=== PATIENT | female | born 1990 | race Caucasian/White ===

== ENCOUNTER → 2017-10-11 14:11 | Outpatient (CLI) | payer SELFPAY ==
[2017-10-11 17:55] LABS: Group B Strep DNA By PCR POSITIVE (Negative); Probe Check PASS
== END ==
PROVIDERS: Visit Provider Obstetrics & Gynecology
DX: Z36.85 Encounter for antenatal screening for Streptococcus B (principal)
CPT/HCPCS: 87653

== ENCOUNTER 2017-11-09 06:48 | Inpatient (IN) | payer SELFPAY ==
[2017-11-09 07:22] VITALS: BMI 29.6
[2017-11-09] MEDS: Lactated Ringers 1,000 ML 50 ML IV ×3 (07:44→13:30)
[2017-11-09 08:14] LABS: Hematocrit 40.6 % (37-47); Hemoglobin 14.2 g/dl (12.0-15.0); Mean Corpuscular Hgb 30.7 pg (27.0-32.0); Mean Corpuscular Volume 87.9 fL (81-99); Mean Platelet Vol. 10.3 fl (6.2-12.0); Platelet Count 121 K/mm3 (150-450); RBC Distribution Width CV 12.7 % (11.6-14.6); Red Blood Count 4.62 M/mm3 (4.2-5.4); White Blood Count 14.8 K/mm3 (4.4-11.0)
[2017-11-09 08:15] LABS: Scan Indicated on CBC? Y/N NO
[2017-11-09] MEDS: Oxytocin 30 units/NS 500 ml 30 UNITS/500 ML IV.SOLN IV (08:37)
--- NOTE | 2017-11-09 13:07 | PCM.PN.BLA ---
Progress Note LABOR PROGRESS NOTE. Late entry from approx 1205 Feeling some UCs, but not uncomfortable. GBS positive and second PCN dose started. Plans for AROM and then epidural AVSS Pitocin induction. EFM: category I tracing. FHT in 130-140s with accels category I tracing. Occasional late UCs q 2-3 min and at times q 6 mins. CX: 4/75/-2 midposition. AROM clear fluid A/P: 40 wk induction Thrombocytopenia, but plts ok for epidural. Epidural to be placed. Continue labor PCN for GBS prophylaxis. Second dose initiated.
[2017-11-09] MEDS: fentaNYL-bupivacaine (epidural) 100 ML BAG EPIDURAL (13:56)
[2017-11-09] MEDS: Oxytocin 30 units/NS 500 ml 30 UNITS/500 ML IV.SOLN 334 UNITS IV (15:33)
[2017-11-09] MEDS: Oxytocin 30 units/NS 500 ml 30 UNITS/500 ML IV.SOLN 167 UNITS IV (16:03)
--- NOTE | 2017-11-09 16:21 | PCM.OB.VAG ---
Vaginal Delivery Maternal Presentation: Elective Induction 40 wk, thrombocytopenia Method of Induction: Pitocin, Amniotomy Amniotic Membrane Rupture Type: Artificial Amniotic Fluid Description: Clear Final LISA: 11/09/17 Gestational age: 40 Weeks and 0 Days Date of Procedure: 11/09/17 Pre-Operative Diagnosis: 40 wk induction , thrombocytopenia Post-Operative Diagnosis: same Type of Anesthesia: Epidural Description of Procedure: of a singleon viable female over intact perineum Head delivered OA with single contraction and maternal expulsive effort. Loose nuchal cord x one reduced. Shoulders delivered easily. Vigorous, crying to maternal abdomen. Delayed cord clamping x 30 sec. Cord clamped x two and cut. Routine cord blood collected for typing. PP exam: no lacerations, no repair. Placenta delivered by spontaneous expulsion, expression. Intact, with trailing membranes. normal appearing. 3V cord. EBL 200 cc Pt and infant tolerated delivery well. To recovery, stable condition Ray Jackie counts correct times two. Presentation: Vertex - OA Placental Delivery Description: Spontaneous, Expressed Placenta Disposition: [facility] Cord Vessel Description: 3 Vessels Nuchal Cord Compression: Without compression Cord Entanglement: Around neck x 1, loose Drain: Salas to straight drain Estimated Blood Loss: 200 A gender: Female (1 minute): 9 (5 minute): 9 Episiotomy Description: None Laceration: None Medications given after delivery: IV Pitocin Complications: None
--- NOTE | 2017-11-09 16:26 | PCM.DCVAG ---
Discharge Diet: No Restrictions Discharge Activity: May Shower, May Take a Tub Bath Return to work on:: 12/20/17 May resume sexual activity in: 4-6 weeks Additional Activity Instructions:: Nothing in the vagina for 4-6 weeks. You may return to work/school in 6 weeks. Additional Instructions: If you experience any of the following, contact your healthcare provider. Bleeding that soaks a pad every hour for 2 hours Fever 100.4 or higher Unrelieved abdominal pain Problems urinating (including inability to urinate or burning while urinating). Visual changes Severe headache Flu-like symptoms Pain or redness in one of both of your breasts Pain, warmth, tenderness or swelling in your legs, especially the calf area Frequent nausea and vomiting Symptoms of depression or anxiety If you experience any of the following, call 911 or go to the nearest Emergency Room. Chest pain Problems breathing Seizure activity Partial or complete paralysis of a body part, slurred speech, weakness or drooping of the face, or a sudden inability to walk or hold your balance Allergies/Adverse Reactions: Allergies No Known Allergies Allergy (Verified 01/08/16 10:13) Medications to take at Discharge Vits [Prenatabs FA ] 1 tablet PO DAILY 06/11/14 Please Follow Up With: Willow Mathur MD - [phone] When: Call to make an appointment with your doctor in 6 weeks. Primary Care Physician: Care Physician,No Primary [Primary Care Provider] -
--- NOTE | 2017-11-09 16:27 | DCINST_ITS ---
Discharge Diet: No Restrictions Discharge Activity: May Shower, May Take a Tub Bath Return to work on:: 12/20/17 May resume sexual activity in: 4-6 weeks Additional Activity Instructions:: Nothing in the vagina for 4-6 weeks. You may return to work/school in 6 weeks. Additional Instructions: If you experience any of the following, contact your healthcare provider. * Bleeding that soaks a pad every hour for 2 hours * Fever 100.4 or higher * Unrelieved abdominal pain * Problems urinating (including inability to urinate or burning while urinating) . * Visual changes * Severe headache * Flu-like symptoms * Pain or redness in one of both of your breasts * Pain, warmth, tenderness or swelling in your legs, especially the calf area * Frequent nausea and vomiting * Symptoms of depression or anxiety If you experience any of the following, call 911 or go to the nearest Emergency Room. * Chest pain * Problems breathing * Seizure activity * Partial or complete paralysis of a body part, slurred speech, weakness or drooping of the face, or a sudden inability to walk or hold your balance Allergies/Adverse Reactions: Allergies No Known Allergies Allergy (Verified 01/08/16 10:13) Medications to take at Discharge Vits [Prenatabs FA ] 1 tablet PO DAILY 06/11/14 Please Follow Up With: Willow Mathur MD - [phone] When: Call to make an appointment with your doctor in 6 weeks. Primary Care Physician: Care Physician,No Primary [Primary Care Provider] -
[2017-11-09] MEDS: Lactated Ringers 1,000 ML 15 ML IV (17:06)
[2017-11-09 20:50] VITALS: BP 108/66; PULSE 85; RESP 18; TEMP 36.8
[2017-11-10] MEDS: Ibuprofen 600 MG Tablet PO ×3 (00:44→18:21)
[2017-11-10 00:46] VITALS: BP 110/62; PULSE 77; RESP 18; TEMP 36.6
[2017-11-10 05:00] VITALS: BP 114/62; PULSE 87; RESP 18; TEMP 36.8
--- NOTE | 2017-11-10 05:52 | PCM.PN.OB ---
Subjective: PPD#1 GBS positive, adequate prophylaxis given prior to delivery Doing well. states baby has been sleeping well at stretches, and also nursing well. States some pain but ibuprofen helpful for this. Would like to go home later today if baby is released. (two boys at home, flu restrictions on visitation) Objective: Up walking around the room, NAD. - Physical Exam General: Alert, Oriented x3, Cooperative, No apparent distress HEENT: Atraumatic Neck: Supple Abdomen: Soft - Fundus firm NT at approx umbilicus Neurological: Cranial nerves II-XII grossly intact Psych/Mental Status: Normal Affect Vital Signs Temp Pulse Resp BP 97.9 F 77 18 110/62 11/10/17 00:46 11/10/17 00:46 11/10/17 00:46 11/10/17 00:46 Oxygen Delivery Method Room Air Weight: 80.8 kg Body Mass Index (BMI) 29.6 Intake and Output for Last 24 Hours 11/08/17 11/09/17 11/10/17 23:59 23:59 23:59 Intake Total 3120 / 3120 Output Total 3600 / 3600 Balance -480 / -480 Laboratory Tests Past 24 Hrs 11/09/17 11/09/17 11/10/17 07:55 07:55 05:35 WBC 14.8 H Pending RBC 4.62 Pending Hgb 14.2 Pending Hct 40.6 Pending MCV 87.9 Pending MCH 30.7 Pending MCHC 35.0 Pending RDW 12.7 Pending RDW Differential 40.0 Pending Plt Count 121 L Pending MPV 10.3 Blood Type O NEGATIVE Antibody Screen NEGATIVE Medical Necessity - Tobacco Use Smoking Status: Never smoker Assessment/Plan PPD#1 GBS but with adequate prophylaxis prior to delivery Dischg home today if baby is released. RTO in 6wk for pp check, prn sooner.
[2017-11-10 06:19] LABS: Hematocrit 35.6 % (37-47); Hemoglobin 12.3 g/dl (12.0-15.0); Mean Corp Hgb Conc 34.6 g/gl (32-36); Mean Corpuscular Hgb 30.8 pg (27.0-32.0); Mean Corpuscular Volume 89.2 fL (81-99); Mean Platelet Vol. 10.1 fl (6.2-12.0); Platelet Count 123 K/mm3 (150-450); RBC Distribution Width CV 12.6 % (11.6-14.6); RBC Distribution Width SD 40.1 fl (35.1-43.9); Red Blood Count 3.99 M/mm3 (4.2-5.4); Scan Indicated on CBC? Y/N NO; White Blood Count 15.6 K/mm3 (4.4-11.0)
[2017-11-10 09:30] VITALS: BP 132/74; PULSE 92; RESP 16; TEMP 36.3; O2SAT 98
[2017-11-10] MEDS: Prenatal Vits Tablet 1 TABLET PO (09:50)
[2017-11-10 12:00] VITALS: BP 129/81; PULSE 86; RESP 16; TEMP 36.3; O2SAT 97
[2017-11-10] MEDS: Senna/Docusate Sodium 1 Tablet PO (17:24)
[2017-11-10 18:00] VITALS: BP 123/76; PULSE 77; RESP 18; TEMP 36.3; O2SAT 97
== END 2017-11-10 18:30 | disposition home or self-care (01) | DRG 775 ==
PROVIDERS: Admitting Provider Obstetrics & Gynecology; Visit Provider Obstetrics & Gynecology
DX: O99.12 Other diseases of the blood and blood-forming organs and certain disorders involving the immune mechanism complicating childbirth (principal); D69.6 Thrombocytopenia, unspecified; O69.81X0 Labor and delivery complicated by cord around neck, without compression, not applicable or unspecified; O99.820 Streptococcus B carrier state complicating pregnancy; Z3A.40 40 weeks gestation of pregnancy; Z37.0 Single live birth
CPT/HCPCS: 59025; 59050; 85027; 86850; 86900; 93460; 99218; J7120; G0378

== ENCOUNTER → 2020-05-16 | Outpatient (CLI) | payer SELFPAY ==
[2020-05-20 18:06] LABS: HPV APTIMA, High Risk Negative (Negative); HPV Reflexed? YES, CHARGE PATIENT
== END | disposition home or self-care (01) ==
LOC: LABSPEC 13:07
PROVIDERS: Visit Provider Student in an Organized Health Care Education/Training Program
DX: Z12.4 Encounter for screening for malignant neoplasm of cervix (principal)
CPT/HCPCS: 87624; 88175; G0145

== ENCOUNTER → 2020-10-25 13:37 | Outpatient (CLI) | payer SELFPAY ==
--- NOTE | 2020-10-25 14:28 | US_ITS ---
STUDY: ULTRASOUND BREAST - LEFT REASON FOR EXAM: Female, 30 years old. Palpable lump left breast. TECHNIQUE: Axial and longitudinal images of the LEFT breast were performed with a high resolution ultrasound transducer. # OF IMAGES: 23 COMPARISON: Comparison is made with prior mammogram done earlier today. FINDINGS: LEFT Breast: The palpable abnormality corresponds to a 6 mm x 5 mm x 3 mm cyst just deep to the subcutaneous tissue. US/Breast Limited Unilateral IMPRESSION: The palpable abnormality corresponds to a 6 mm x 5 mm x 3 mm cyst at the 5 o''clock position of the breast at 2 cm from nipple just deep to the skin. ASSESSMENT CATEGORY: BIRADS Category 2: Benign. A letter regarding these results will be sent to the patient by the facility within 30 days. Electronically Signed: Robert Cueva MD at 15:51 EDT , Service support ,
--- NOTE | 2020-10-25 14:28 | BI_ITS ---
MAMMOGRAPHY - BILATERAL DIAGNOSTIC REASON FOR EXAM: Female, 30 years old. Pea-sized lump left breast. PERTINENT HISTORY: Non-contributory. TECHNIQUE: Digital bilateral breast danielle (3D mammographic acquisition) in the CC and MLO projections. 2-D mediolateral oblique (MLO) and craniocaudad (CC) views of both breasts were obtained. CAD: Full Field Digital Mammography with Computer Added Detection was performed. COMPARISON: None. Baseline examination. FINDINGS: Breast Composition: The breasts are extremely dense, which lowers the sensitivity of mammography. The palpable abnormality corresponds to a 5.8 mm well-defined nodule. No other significant abnormalities are identified. BI/DIAG MAMM W/CAD, BILAT IMPRESSION: 5.8 mm well-defined nodule in the central lateral aspect of the left breast. Correlation with ultrasound is recommended. ASSESSMENT CATEGORY: BIRADS Category 0: Incomplete. Need additional imaging evaluation. A letter regarding these results will be sent to the patient by the facility within 30 days. Approximately 10% of breast cancers are not detected by mammography. A normal mammogram should not delay biopsy of a clinically suspicious abnormality. Electronically Signed: Robert Cueva MD at 15:21 EDT , Service support ,
== END ==
PROVIDERS: Referring Provider Student in an Organized Health Care Education/Training Program; Visit Provider Student in an Organized Health Care Education/Training Program
DX: N63.0 Unspecified lump in unspecified breast (principal)
CPT/HCPCS: 76642; 77062; 77066; G0279

== ENCOUNTER 2024-09-09 19:14 | Inpatient (IN) | payer OTHER, SELFPAY ==
[2024-09-09] VITALS (26 sets, daily range): BP systolic 100–128; BP diastolic 53–82; PULSE 62–77; RESP 16–18; TEMP 36.1–36.3; O2SAT 99–100; BMI 28.8
[2024-09-09] MEDS: Lactated Ringers 1,000 ML 50 ML IV (19:50)
[2024-09-09 20:17] LABS: Absolute Lymphocyte Count 3.39 X10^3/uL (0.83-4.51); Absolute Neutrophil Count 11.2 X10^3/uL (2.0-7.7); Basophil# 0.06 X10^3/uL; Basophil% 0.4 % (0-1); Eosinophil# 0.11 X10^3/uL; Eosinophils% 0.7 % (0-5); Hematocrit 42.5 % (37-47); Lymphocyte # 3.39 X10^3/ul (0.83-4.51); Lymphocyte % 20.7 % (19-41); Mean Corp Hgb Conc 35.3 g/dL (32-36); Mean Corpuscular Hgb 31.2 pg (27.0-32.0); Mean Corpuscular Volume 88.4 fL (81-99); Mean Platelet Vol. 10.3 fl (6.2-12.0); Monocyte# 1.29 X10^3/uL; Monocyte% 7.9 % (0-10); NRBC Flagged by Analyzer 0 % (0-5); Neutrophil # 11.22 X10^3/uL (2.7-7.7); Neutrophil % 68.2 % (47-70); Platelet Count 153 K/mm3 (150-450); RBC Distribution Width CV 12.5 % (11.6-14.6); RBC Distribution Width SD 41.1 fl (35.1-43.9); Red Blood Count 4.81 M/mm3 (4.2-5.4); White Blood Count 16.4 K/mm3 (4.4-11.0)
[2024-09-09] MEDS: Oxytocin 15 Units/NS 250ml 15 UNITS/250 ML IV.SOLN 2 UNITS IV (20:28)
[2024-09-09] MEDS: Lactated Ringers 1,000 ML 999 ML IV (20:40)
[2024-09-09 21:37] LABS: Syphilis Antibodies Non-reactive
[2024-09-09] MEDS: fentaNYL-bupivacaine (epidural) 100 ML BAG EPIDURAL (22:10)
[2024-09-10] VITALS (31 sets, daily range): BP systolic 98–134; BP diastolic 58–87; PULSE 64–84; RESP 16–18; TEMP 36.1–36.6; O2SAT 88–99
[2024-09-10] MEDS: Lactated Ringers 1,000 ML 200 ML IV ×2 (02:26→07:43)
[2024-09-10] MEDS: Ondansetron 4 MG/2 ML Vial IV (08:09)
[2024-09-10] MEDS: fentaNYL-bupivacaine (epidural) 100 ML BAG EPIDURAL (08:52)
[2024-09-10] MEDS: Methylergonovine 0.2 MG/ML Ampul IM (09:44)
--- NOTE | 2024-09-10 09:52 | PCM.HP.OB ---
HPI - General General Date of Admission: 09/09/24 Date of Service: 09/09/24 Chief Complaint: induction of labor HPI Narrative KRISTIE FERNANDEZ, is a 34 F who presents for IOL for AMA and thrombocytopenia. [facility] Medical History (Updated 09/10/24 @ 09:[address] Laurel Nolen, DO) Anemia affecting Tonsil and adenoid disease, chronic Home Medications ?Medication ?Instructions ?Recorded ?Last Taken ?Type vits,calcium no.78-iron 1 tab PO DAILY 06/11/14 11/09/17 06:00 History fumarate-folic acid 29 mg-1 mg tablet (Prenatabs FA) aspirin 81 mg tablet,delayed 81 mg PO DAILY 09/09/24 09/08/24 History release Allergy/AdvReac Type Severity Reaction Status Date / Time No Known Allergies Allergy Verified 09/09/24 19:39 Surgical History (Updated 09/09/24 @ 19:56 by Zainab Torres) [place] teeth extracted Social History Smoking Status: Never smoker History Elective abortions Hx Para 3 Spontaneous abortions Hx # Term Pregnancies Ectopic pregnancies Hx # Pregnancies Multiple births # of living children NST FHR Rate Baby A FHR Category:: Category I Vital Signs Vital Signs Vital Signs: 09/09/24 19:31 09/09/24 19:31 09/09/24 19:31 Temperature Temperature Source Temporal Pulse Rate 69 Respiratory Rate Blood Pressure 121/78 H BP Systolic 121 BP Diastolic 78 Pulse Ox 09/09/24 19:31 09/09/24 19:31 09/09/24 21:50 Temperature 97.4 F L Temperature Source Pulse Rate Respiratory Rate 16 Blood Pressure 123/81 H BP Systolic 123 BP Diastolic 81 Pulse Ox 09/09/24 21:50 09/09/24 21:51 09/09/24 21:51 Temperature Temperature Source Pulse Rate 70 69 Respiratory Rate Blood Pressure BP Systolic BP Diastolic Pulse Ox 100 09/09/24 21:56 09/09/24 21:56 09/09/24 21:57 Temperature Temperature Source Pulse Rate 77 Respiratory Rate Blood Pressure 124/82 H BP Systolic 124 BP Diastolic 82 Pulse Ox 100 09/09/24 21:57 09/09/24 22:01 09/09/24 22:01 Temperature Temperature Source Pulse Rate 71 74 Respiratory Rate Blood Pressure BP Systolic BP Diastolic Pulse Ox 100 09/09/24 22:02 02/01/25 22:02 09/09/24 22:06 Temperature Temperature Source Pulse Rate 72 75 Respiratory Rate Blood Pressure 116/71 BP Systolic 116 BP Diastolic 71 Pulse Ox 09/09/24 22:06 09/09/24 22:08 09/09/24 22:09 Temperature Temperature Source Pulse Rate Respiratory Rate 16 Blood Pressure 128/66 H BP Systolic 128 BP Diastolic 66 Pulse Ox 100 09/09/24 22:09 09/09/24 22:11 09/09/24 22:11 Temperature Temperature Source Pulse Rate 77 76 Respiratory Rate Blood Pressure BP Systolic BP Diastolic Pulse Ox 100 09/09/24 22:13 09/09/24 22:13 09/09/24 22:13 Temperature Temperature Source Pulse Rate 73 Respiratory Rate 18 Blood Pressure 120/75 BP Systolic 120 BP Diastolic 75 Pulse Ox 09/09/24 22:15 09/09/24 22:15 09/09/24 22:16 Temperature 97.2 F L Temperature Source Temporal Pulse Rate 69 Respiratory Rate Blood Pressure BP Systolic BP Diastolic Pulse Ox 09/09/24 22:16 09/09/24 22:17 09/09/24 22:17 Temperature Temperature Source Pulse Rate 71 Respiratory Rate Blood Pressure 119/73 BP Systolic 119 BP Diastolic 73 Pulse Ox 100 09/09/24 22:18 09/09/24 22:21 09/09/24 22:21 Temperature Temperature Source Pulse Rate 69 Respiratory Rate 18 Blood Pressure BP Systolic BP Diastolic Pulse Ox 99 09/09/24 22:22 09/09/24 22:22 09/09/24 22:23 Temperature Temperature Source Pulse Rate 70 Respiratory Rate 16 Blood Pressure 121/78 H BP Systolic 121 BP Diastolic 78 Pulse Ox 09/09/24 22:26 09/09/24 22:26 09/09/24 22:27 Temperature Temperature Source Pulse Rate 62 Respiratory Rate Blood Pressure 101/53 L BP Systolic 101 BP Diastolic 53 Pulse Ox 99 09/09/24 22:27 09/09/24 22:28 09/09/24 22:31 Temperature Temperature Source Pulse Rate 65 62 Respiratory Rate 18 Blood Pressure BP Systolic BP Diastolic Pulse Ox 09/09/24 22:31 09/09/24 22:32 09/09/24 22:32 Temperature Temperature Source Pulse Rate 63 Respiratory Rate Blood Pressure 100/56 L BP Systolic 100 BP Diastolic 56 Pulse Ox 99 09/09/24 23:08 09/09/24 23:08 09/09/24 23:08 Temperature 97.0 F L Temperature Source Temporal Pulse Rate Respiratory Rate 18 Blood Pressure BP Systolic BP Diastolic Pulse Ox 09/09/24 23:09 09/09/24 23:09 09/10/24 00:09 Temperature Temperature Source Pulse Rate 67 Respiratory Rate Blood Pressure 114/59 L 133/87 H BP Systolic 114 133 BP Diastolic 59 87 Pulse Ox 09/10/24 00:09 09/10/24 00:09 09/10/24 00:09 Temperature Temperature Source Temporal Pulse Rate 71 Respiratory Rate 16 Blood Pressure BP Systolic BP Diastolic Pulse Ox 09/10/24 00:09 09/10/24 00:59 09/10/24 00:59 Temperature 97.5 F L Temperature Source Pulse Rate 75 Respiratory Rate Blood Pressure BP Systolic BP Diastolic Pulse Ox 98 09/10/24 01:12 09/10/24 01:12 09/10/24 01:13 Temperature Temperature Source Temporal Pulse Rate 70 Respiratory Rate Blood Pressure 119/71 BP Systolic 119 BP Diastolic 71 Pulse Ox 09/10/24 01:13 09/10/24 01:13 09/10/24 02:16 Temperature 97.2 F L Temperature Source Pulse Rate Respiratory Rate 16 Blood Pressure 123/68 H BP Systolic 123 BP Diastolic 68 Pulse Ox 09/10/24 02:16 09/10/24 02:18 09/10/24 02:18 Temperature Temperature Source Temporal Pulse Rate 67 Respiratory Rate 16 Blood Pressure BP Systolic BP Diastolic Pulse Ox 09/10/24 02:18 09/10/24 02:58 09/10/24 02:58 Temperature 97.1 F L Temperature Source Temporal Pulse Rate Respiratory Rate 18 Blood Pressure BP Systolic BP Diastolic Pulse Ox 09/10/24 02:58 09/10/24 02:59 09/10/24 02:59 Temperature 97.2 F L Temperature Source Pulse Rate 65 Respiratory Rate Blood Pressure 106/64 BP Systolic 106 BP Diastolic 64 Pulse Ox 09/10/24 04:14 09/10/24 04:14 09/10/24 04:14 Temperature Temperature Source Temporal Pulse Rate 74 Respiratory Rate Blood Pressure 115/74 BP Systolic 115 BP Diastolic 74 Pulse Ox 09/10/24 04:14 09/10/24 04:14 09/10/24 05:08 Temperature 97.3 F L Temperature Source Temporal Pulse Rate Respiratory Rate 18 Blood Pressure BP Systolic BP Diastolic Pulse Ox 09/10/24 05:08 09/10/24 05:08 09/10/24 05:08 Temperature Temperature Source Pulse Rate 71 Respiratory Rate 16 Blood Pressure 125/70 H BP Systolic 125 BP Diastolic 70 Pulse Ox 09/10/24 05:08 09/10/24 06:09 09/10/24 06:09 Temperature 97.3 F L Temperature Source Pulse Rate 70 Respiratory Rate Blood Pressure 108/66 BP Systolic 108 BP Diastolic 66 Pulse Ox 09/10/24 06:12 09/10/24 06:12 09/10/24 06:12 Temperature Temperature Source Temporal Pulse Rate 64 Respiratory Rate 16 Blood Pressure BP Systolic BP Diastolic Pulse Ox 09/10/24 06:12 09/10/24 06:12 09/10/24 07:22 Temperature 97.0 F L Temperature Source Pulse Rate Respiratory Rate Blood Pressure 124/84 H BP Systolic 124 BP Diastolic 84 Pulse Ox 99 09/10/24 07:22 09/10/24 07:22 09/10/24 07:22 Temperature Temperature Source Temporal Pulse Rate 80 Respiratory Rate 16 Blood Pressure BP Systolic BP Diastolic Pulse Ox 09/10/24 07:22 09/10/24 08:23 09/10/24 08:23 Temperature 97.4 F L Temperature Source Temporal Pulse Rate Respiratory Rate 16 Blood Pressure BP Systolic BP Diastolic Pulse Ox 09/10/24 08:23 09/10/24 08:24 09/10/24 08:24 Temperature 97.0 F L Temperature Source Pulse Rate 64 Respiratory Rate Blood Pressure 98/58 L BP Systolic 98 BP Diastolic 58 Pulse Ox 09/10/24 08:24 09/10/24 09:31 09/10/24 09:31 Temperature Temperature Source Pulse Rate 68 Respiratory Rate Blood Pressure 129/81 H BP Systolic 129 BP Diastolic 81 Pulse Ox 99 09/10/24 09:46 09/10/24 09:46 Temperature Temperature Source Pulse Rate 76 Respiratory Rate Blood Pressure 134/82 H BP Systolic 134 BP Diastolic 82 Pulse Ox Weight Weight: 173 lb 4 oz Body Mass Index (BMI) 28.8 Labs Labs Labs: Blood Type O NEGATIVE Antibody Screen NEGATIVE Hct 42.5 % (37-47) Hgb 15.0 g/dL (12.0-15.0) Syphilis Total Ab Non-reactive Rubella IgG Antibody 78.2 IU/mL Hep Bs Antigen Negative (Negative) Hepatitis C Ab (EIA) <0.1 s/co ratio (0.0-0.9) Chlamydia DNA (ERICKSON) Negative (Negative) N.gonorrhoeae DNA (ERICKSON) Negative (Negative) Glucose 1 Hr 50 gm 102 mg/dL (70-140) Group B Strep DNA POSITIVE (Negative) H Rhogam given: No Assessment & Plan (1) 39 weeks gestation of : (2) Encounter for planned induction of labor: PLAN: Routine intrapartum care. Pitocin per protocol. Epidural for pain control. EFW < 4500 grams and pelvis adequate. (3) Thrombocytopenia affecting : PLAN: Patient received steroids prior to induction for low platelet count (4) AMA (advanced maternal age) multigravida 35+:
--- NOTE | 2024-09-10 09:54 | EX.PCM.OBVAG ---
Assessment & Plan (1) AMA (advanced maternal age) multigravida 35+: (2) Thrombocytopenia affecting : (3) Encounter for planned induction of labor: (4) 39 weeks gestation of : (5) Vaginal delivery: (6) First degree perineal laceration: Vaginal Delivery Maternal Presentation Maternal Presentation: Medically Indicated Induction Type of Induction: Pitocin Medical Reason for Induction: Other (AMA and thrombocytopenia) Vaginal Delivery Information Procedure Performed: Spontaneous Vaginal Delivery Surgeon/Practitioner: Laurel Nolen Date of Procedure: 09/10/24 Pre-Procedure Diagnosis: 39 week gestation, AMA, thrombocytopenia Post-Procedure Diagnosis: As above Type of anesthesia: Epidural Special Medications: None Estimated Blood Loss: 200 cc Fluids Replaced: N/A Findings Description of procedure: Patient was completed and pushing for two contractions. The head of the delivered in KRZYSZTOF position. The anterior shoulder was delivered with gentle downward traction, followed by the posterior shoulder and body of the without any excessive traction, force or delay. The cord was clamped and cut after a 60 second delay. The placenta delivered with fundal massage and was noted to be intact and normal appearing with a 3 VC. A small right labial laceration was noted and was not bleeding. A first degree perineal laceration was noted. The first degree laceration was repaired with 3-0 Vicryl in usual fashion. The uterine bleeding became brisk despite Pitocin. The uterus was explored and cleared of several small clots and Methergine x 1 was given. Fundus was then firm and bleeding scant. A vaginal sweep was performed. Sharp and sponge counts were correct. Procedure findings: Vigorous VFI with Apgars 8, 10. Meconium stained fluid at time of delivery. Presentation: KRZYSZTOF Amniotic Fluid Description: Clear (throughout labor ) and Lightly stained meconium (at time of delivery) Placental Delivery Description: Expressed Cord Vessel Description: 3 Vessels Cord Entanglement: None A Gender: Female (1 minute): 8 (5 minute): 10 Delayed Cord Clamping: Yes Post Vaginal Deli Medications given after delivery: IV Pitocin and IM Methergin Episiotomy Description: None Laceration: 1st degree Complication Complications: No
[2024-09-10] MEDS: Oxytocin 15 Units/NS 250ml 15 UNITS/250 ML IV.SOLN 83 UNITS IV (10:23)
[2024-09-10] MEDS: Acetaminophen 500 MG Tablet 1000 MG PO ×3 (10:47→23:58)
[2024-09-10] MEDS: Ibuprofen 600 MG Tablet PO ×2 (12:30→18:41)
[2024-09-10] MEDS: Benzocaine/Lanolin/Aloe Vera 85 GM Spray 1 SPRAY TOPICAL (15:44)
[2024-09-11] VITALS: BP 110/67; PULSE 73; RESP 16; TEMP 36.7; O2SAT 97
[2024-09-11 04:30] VITALS: BP 112/62; PULSE 66; RESP 16; TEMP 36.6; O2SAT 96
[2024-09-11 04:49] VITALS: BP 112/62; PULSE 66
[2024-09-11] MEDS: Ibuprofen 600 MG Tablet PO (04:52)
[2024-09-11 06:25] LABS: Absolute Lymphocyte Count 3.36 X10^3/uL (0.83-4.51); Basophil# 0.04 X10^3/uL; Basophil% 0.2 % (0-1); Eosinophils% 0.6 % (0-5); Hematocrit 39.1 % (37-47); Hemoglobin 13.6 g/dL (12.0-15.0); Lymphocyte # 3.36 X10^3/ul (0.83-4.51); Lymphocyte % 18.8 % (19-41); Mean Corp Hgb Conc 34.8 g/dL (32-36); Mean Corpuscular Hgb 31.4 pg (27.0-32.0); Mean Corpuscular Volume 90.3 fL (81-99); Mean Platelet Vol. 10.3 fl (6.2-12.0); Monocyte# 1.07 X10^3/uL; NRBC Flagged by Analyzer 0 % (0-5); Neutrophil % 72.9 % (47-70); Platelet Count 122 K/mm3 (150-450); RBC Distribution Width CV 12.9 % (11.6-14.6); RBC Distribution Width SD 42.2 fl (35.1-43.9); Red Blood Count 4.33 M/mm3 (4.2-5.4); White Blood Count 17.8 K/mm3 (4.4-11.0)
[2024-09-11 07:47] VITALS: BP 110/73; PULSE 73; O2SAT 99
[2024-09-11 08:00] VITALS: BP 110/73; PULSE 74; RESP 18; TEMP 36.1
[2024-09-11] MEDS: Acetaminophen 500 MG Tablet 1000 MG PO (08:06)
[2024-09-11] MEDS: Senna/Docusate Sodium 1 Tablet PO (08:07)
--- NOTE | 2024-09-11 08:08 | DS.PCM_ITS ---
Providers Date of Admission: 09/09/24 Primary Care Physician: Dr. Nitin Owen MD Reason For Visit: VAGINAL DELIVERY Diagnosis Discharge Diagnosis (1) Vaginal delivery: Status: Acute Code(s): O80 - Encounter for full-term uncomplicated delivery (2) First degree perineal laceration: Status: Acute Code(s): O70.0 - First degree perineal laceration during delivery Medications at Discharge Home Medications vits,calcium no.78-iron fumarate-folic acid 29 mg-1 mg tablet (Prenatabs FA) 1 tab PO DAILY 06/11/14 acetaminophen 500 mg tablet 1,000 mg (2 x 500 mg) PO Q6H PRN PRN Pain 1-10 Or Fever #0 tabs 09/11/24 ibuprofen 600 mg tablet 600 mg PO Q6H PRN PRN Pain Score 1-10 #0 tabs 09/11/24 Hospital Course Operations None Procedures None Summary of Care Provided Minutes Spent on Discharge: 15 Hospital Course: Patient had vaginal delivery. Hospital course was uneventful. Physical Exam Narrative Patient seen at bedside. Denies pain. Ambulating and voiding without difficulty. Lochia decreased. Desires discharge home today. Const alert and oriented x3 General Appearance: Negative for in distress HEENT normocephalic Eyes General Eye: normal appearance of both eyes Neck General: normal visual inspection Chest Chest: symmetrical chest wall rise Resp normal respiratory effort and normal air movement Effort and Inspection: symmetric chest movement; Negative for tachypneic Auscultation: clear to auscultation bilaterally Cardio regular rate and regular rhythm Peripheral Pulses: pulses 2+ throughout GI normal to inspection, nondistended, normoactive bowel sounds Narrative: Ice to perineum OB / External & Speculum: vaginal bleeding and other Lochia decreasing Uterus Palpation: uterus fundus firm (Below U) Extremity normal to inspection, full ROM and normal capillary refill Skin no rashes or lesions noted Neuro oriented x3, CN's II-XII intact bilaterally and gait normal Psych mental status grossly normal, thought process normal and activity/motor behavior normal Weight / BMI Weight Weight: 173 lb 4 oz Body Mass Index (BMI) 28.8 ABG / Lab / Microbiology Data 09/11/24 06:06 Laboratory: Laboratory Results - last 24 hr 09/11/24 06:06: WBC 17.8 H, RBC 4.33, Hgb 13.6, Hct 39.1, MCV 90.3, MCH 31.4, MCHC 34.8, RDW Std Deviation 42.2, RDW Coeff of Edith 12.9, Plt Count 122 L, MPV 10.3, Immature Gran % (Auto) 1.500 H, Neut % (Auto) 72.9 H, Lymph % (Auto) 18.8 L, [place] % (Auto) 6.0, Eos % (Auto) 0.6, Baso % (Auto) 0.2, Absolute Neuts (auto) 13.0 H, Absolute Lymphs (auto) 3.36, Nucleated RBC % 0 D/C Instructions Discharge Diet: No restrictions Discharge Activity: Return to Normal Activity, No Restrictions, May Drive, May Shower and May Take a Tub Bath (Warm water only. No bath salts, soaps, bubbles) May resume sexual activity in: 6-8 weeks Weight Bearing Status: Weight bearing as tolerated Call your doctor if you observe: Fever of 101 or Higher, Inability to urinate, Using more than 1 pad per hour, Shortness of breath, Dizziness, Chest pain, Calf discomfort and Uncontrolled pain DC O2, CPAP, BIPAP Needs Home O2 Discharge instructions: No Please Follow Up With: [facility] Rita LOCKETT When: 2 weeks in office or virtual Meaningful Use Info Meaningful Use Meaningful Use Diagnoses (Choose all that apply): None applicable Ischemic Stroke Statin Dosing Therapy Reference: STATIN DOSE THERAPY REFERENCE: * Patients > 75 years receive moderate or high dose statin therapy. * Patients 75 years or YOUNGER should receive HIGH intensity statin dose unless contraindicated. You will be required to document reason for non-treatment if statin daily dose does not meet guidelines. HIGH DOSE STATIN THERAPY DAILY Atorvastatin > than or = to 40 mg Rosuvastatin > than or = to 20 mg Amlodipine + Atorvastatin > than or = to 2.5/40 mg Ezetimibe + Simvastatin 10/80 mg Simvastatin 80mg Discharge Plan Admission Admit Date/Time: 09/09/24 19:14 Primary Reason for Your Visit: Labor and Delivery Attending Provider: Laurel Nolen Primary Care Provider: Nitin Owen Discharge Orders/Prescriptions Prescriptions: New acetaminophen 500 mg Tablet 1,000 mg PO Q6H PRN PRN (Reason: Pain 1-10 Or Fever) Qty: 0 0RF ibuprofen 600 mg Tablet 600 mg PO Q6H PRN PRN (Reason: Pain Score 1-10) Qty: 0 0RF Discontinued aspirin 81 mg tablet,delayed release (DR/EC) 81 mg PO DAILY No Action Prenatabs FA 1 TABLET tablet 1 tab PO DAILY Referrals / Follow Up: Helen Herron CNM [Med Staff - [facility]] - Nitin Owen MD [Primary Care Provider] - Disposition Disposition (needs filled in before D/C Order can be placed): Home, Self Care
== END 2024-09-11 12:35 | disposition home or self-care (01) | DRG 807 ==
PROVIDERS: Obstetrics & Gynecology; Admitting Provider Obstetrics & Gynecology; PCP Family Medicine; Visit Provider Obstetrics & Gynecology
DX: O99.12 Other diseases of the blood and blood-forming organs and certain disorders involving the immune mechanism complicating childbirth (principal); Z37.0 Single live birth; D69.6 Thrombocytopenia, unspecified; O70.0 First degree perineal laceration during delivery; O77.0 Labor and delivery complicated by meconium in amniotic fluid; Z3A.39 39 weeks gestation of pregnancy
CPT/HCPCS: 59025; 59050; 85025; 86780; 86850; 86900; 86901; J2405